=== PATIENT | male | born 1995 | race Caucasian/White ===

== ENCOUNTER 2022-09-02 21:56 | Emergency (ER) | payer OTHER, BC ==
[2022-09-02] MEDS ORDERED: Acetaminophen 500 MG TAB ONE (22:31)
== END 2022-09-02 23:00 | disposition home or self-care (01) ==
LOC: NAV ERS 21:56
DX: S93.601A Unspecified sprain of right foot, initial encounter (principal); S93.421A Sprain of deltoid ligament of right ankle, initial encounter; I10 Essential (primary) hypertension; K21.9 Gastro-esophageal reflux disease without esophagitis; E66.01 Morbid (severe) obesity due to excess calories; W01.0XXA Fall on same level from slipping, tripping and stumbling without subsequent striking against object, initial encounter

== ENCOUNTER 2024-05-04 20:03 | Emergency (ER) | payer OTHER, SELFPAY ==
[2024-05-04] MEDS ORDERED: Ipratropium/Albuterol 3 ML NEB ONE ×2 (20:37→21:39)
[2024-05-04] MEDS ORDERED: Acetaminophen 500 MG TAB ONE (20:38)
[2024-05-04] MEDS ORDERED: predniSONE 20 MG TAB ONE (20:38)
[2024-05-04 22:09] LABS: Influenza A by NAA Not Detected (NotDetected); Influenza B by NAA Not Detected (NotDetected); SARS-CoV-2 NAA Rapid Test Not Detected (NotDetected)
== END 2024-05-04 22:36 | disposition home or self-care (01) ==
LOC: NAV ERS 20:03
DX: J20.9 Acute bronchitis, unspecified (principal); I10 Essential (primary) hypertension; F17.210 Nicotine dependence, cigarettes, uncomplicated; Z79.899 Other long term (current) drug therapy
CPT/HCPCS: 71046; 94640; J7512; J7620